=== PATIENT | female | born 1960 | race Caucasian/White ===

== ENCOUNTER 2017-05-01 20:49 | Emergency (ER) | payer BC ==
[~2017-05-01] VITALS: Ht 167.6 cm; Wt 65.6 kg
[~2017-05-01 20:49] MED LIST: BUPR200T PO; CIPR500T3 PO; COLLAGEN PO; LACT1CAP24 PO; LEVO100T5 PO; LEVO750T26 PO; MULTIVITAMIN; PRED20TA PO; TRAM100T2 PO; TRAM50TA2 PO; VITAMIN B12; VITAMIN D
[2017-05-01] MEDS ORDERED: SODIUM CHLORIDE FLUSH 10ML SYR IVF ONE (22:30)
[2017-05-01 22:40] LABS: HEMATOCRIT 43.1 % (34.6-47.8); HEMOGLOBIN 14.6 g/dL (11.7-16.4); WHITE BLOOD COUNT 8.7 x10^3/uL (3.4-10)
[2017-05-01 22:53] LABS: BLOOD UREA NITROGEN 16 mg/dL (7-18)
[2017-05-01 22:56] LABS: ASPARTATE AMINO TRANSFERASE 20 U/L (15-37)
[2017-05-01] MEDS ORDERED: ASPIRIN 325 MG TABLET PO STA (23:58)
[2017-05-02] MEDS ORDERED: ASPIRIN 325 MG TABLET ONE (00:39)
[2017-05-02 00:43] VITALS: BP 107/64
== END 2017-05-02 00:47 | disposition home or self-care (01) ==
LOC: ED 23:59
DX: G45.8 Other transient cerebral ischemic attacks and related syndromes (principal); E11.9 Type 2 diabetes mellitus without complications
CPT/HCPCS: 36415; 70450; 71010; 80053; 85025; 85610; 85730; 93005; 99285